=== PATIENT | male | born 1960 | race Caucasian/White ===

== ENCOUNTER 2020-06-13 18:17 | Observation (INO) | payer MEDICAID, OTHER, SELFPAY ==
[~2020-06-13] VITALS: Ht 190.5 cm; Wt 101.9 kg
--- NOTE | 2020-06-13 18:49 | NUR ---
PT REPORTS AWAKENING FROM [facility] "DISORIENTED" WITH NUMBNESS ON LEFT SIDE OF BODY, DIFFICULTY STANDING AND "SWIPED STUFF" FROM NIGHT STAND. PT DENIES ANY LASTING SYMPTOMS, DENIES NUMBNESS, CLEAR SPEECH, NORMAL GAIT, MAEX4, AOX4. AT BEDSIDE.
--- NOTE | 2020-06-13 18:55 | NUR ---
assumed care of pt. report from Eun HAYWARD. pt here for ALOC after waking up from a nap at around 1630 this afternoon. pt was having difficulty speaking and feeling disoriented as well as knocking some things off of the bedside table. at this time, pt is A&O x4. calm and cooperative. sitting up and talking. no facial droop. ROSS. SO at bedside
--- NOTE | 2020-06-13 19:01 | NUR ---
REPORT TO YESY DAIGLE.
--- NOTE | 2020-06-13 19:10 | NUR ---
Dr Fatima at bedside for eval
[2020-06-13 19:39] LABS: BASOPHILS # (AUTO) 0.04 x10^3/uL (0-0.1); BASOPHILS % (AUTO) 1 % (0-1); EOSINOPHILS # (AUTO) 0.17 x10^3/uL (0-0.4); EOSINOPHILS % (AUTO) 2 % (1-7); LYMPHOCYTES # (AUTO) 1.84 x10^3/uL (1-3.4); LYMPHOCYTES % (AUTO) 25 % (22-44); MD NO; MEAN CORPUSCULAR HEMOGLOBIN 30.5 pg (27.5-34.5); MEAN CORPUSCULAR HGB CONC 33.4 g/dL (33.2-36.2); MEAN CORPUSCULAR VOLUME 91.2 fL (81-97); MEAN PLATELET VOLUME 7.9 fL (7.4-10.4); MONOCYTES # (AUTO) 0.52 x10^3/uL (0.2-0.8); MONOCYTES % (AUTO) 7 % (2-9); NEUTROPHILS # (AUTO) 4.95 x10^3/uL (1.8-6.8); NEUTROPHILS % (AUTO) 66 % (42-75); PLATELET COUNT 224 x10^3/uL (130-400); RED CELL DISTRIBUTION WIDTH 13.1 % (9.4-14.8)
[2020-06-13 19:52] LABS: ANION GAP 6 mmol/L (5-15); CALCIUM 9.7 mg/dL (8.5-10.1); CHLORIDE 108 mmol/L (98-107); CREATININE 1.06 mg/dL (0.7-1.3)
[2020-06-13 19:53] LABS: INTERNATIONAL NORMALIZED RATIO 1.01 (0.93-1.1); PROTHROMBIN TIME 10.7 Seconds (9.6-11.5)
--- NOTE | 2020-06-13 19:56 | NUR ---
EKG has been to bedside. pt to RAD
[2020-06-13 19:59] LABS: ALANINE AMINOTRANSFERASE 37 U/L (12-78); ALKALINE PHOSPHATASE 49 U/L (45-117); BILIRUBIN,TOTAL 0.5 mg/dL (0.2-1.0); TOTAL PROTEIN 7.3 g/dL (6.4-8.2)
--- NOTE | 2020-06-13 21:05 | NUR ---
pt given urinal sitting up on gurney in no apparent distress. no new c/o
--- NOTE | 2020-06-13 21:22 | NUR ---
Dr Fatima at bedside for recheck
--- NOTE | 2020-06-13 21:29 | NUR ---
pt to be admitted
[2020-06-13] MEDS ORDERED: ASPIRIN 325 MG TABLET PO ONE (21:30)
[2020-06-13] MEDS ORDERED: ASPIRIN 81 MG TABLET CHEW ONE (21:31)
[2020-06-13] MEDS ORDERED: ASPIRIN 325 MG TABLET ONE (21:36)
--- NOTE | 2020-06-13 21:55 | NUR ---
pt updated on POC. positioning and lights dimmed for comfort. SO at bedside
[2020-06-13] MEDS ORDERED: NICOTINE 7 MG/24 HR PATCH.TD24 TD SCH (22:00)
[2020-06-13] MEDS ORDERED: SENNA/DOCUSATE TABLET PO PRN (22:00)
--- NOTE | 2020-06-13 22:11 | NUR ---
Dr. Grijalva at bedside to jackelin for admit
--- NOTE | 2020-06-13 22:29 | NUR ---
bed assignment has been recieved. attempting to call report
--- NOTE | 2020-06-13 22:31 | NUR ---
report called to Mitzi HAYWARD
[2020-06-13] MEDS ORDERED: PLEASE ENTER ALLERGIES MC SCH (23:00)
[2020-06-13 23:03] VITALS: BP 145/96
[2020-06-14 01:00] VITALS: BP 138/82
[2020-06-14 05:49] LABS: CHOL/HDL RATIO 5.9; LDL/HDL RATIO 3.7 (0.5-3.0)
[2020-06-14 07:50] VITALS: BP 131/83
[2020-06-14] MEDS ORDERED: LORazepam 2 MG/ML, 1ML ONE (08:16)
[2020-06-14] MEDS ORDERED: LORazepam 2 MG/ML, 1ML IVPush ONE (08:30)
[2020-06-14] MEDS ORDERED: ASPIRIN 81 MG TABLET CHEW PO/NG SCH (09:00)
[2020-06-14 13:23] VITALS: BP 133/75
[2020-06-14] MEDS ORDERED: ASPI-515 PO/NG (15:42)
[2020-06-14] MEDS ORDERED: ATOR40TA78 PO (15:42)
[2020-06-14] MEDS ORDERED: ATORVASTATIN 40 MG TABLET PO SCH (21:00)
== END 2020-06-14 16:52 | disposition home or self-care (01) ==
LOC: ED 20:51 → EDIP 21:36 → INTOOBSV 21:36 → 5SO 22:48 → DCLOUNGE 06-14 16:45
PROVIDERS: ADMIT Family Medicine; ATTEND Family Medicine
DX: G45.9 Transient cerebral ischemic attack, unspecified (principal); F41.9 Anxiety disorder, unspecified; I10 Essential (primary) hypertension; E78.5 Hyperlipidemia, unspecified; F17.210 Nicotine dependence, cigarettes, uncomplicated; Z79.899 Other long term (current) drug therapy; Z79.82 Long term (current) use of aspirin
CPT/HCPCS: 36415; 70450; 70551; 80053; 80061; 85025; 85610; 85730; 93005; 93306; 93880; 96374; 97162; 97165; 99285; G0378; J2060

== ENCOUNTER → 2020-08-11 | Outpatient (CLI) | payer OTHER ==
[~2020-08-11] MED LIST: ASPI-515 PO/NG; ATOR40TA78 PO
== END | disposition home or self-care (01) ==
LOC: CFH 11:47
PROVIDERS: ATTEND Internal Medicine Cardiovascular Disease
DX: Q21.1 Atrial septal defect (principal)
CPT/HCPCS: 75571